=== PATIENT | female | born 1990 | race American Indian/Alaskan Native ===

== ENCOUNTER 2017-07-03 14:08 | Emergency (ER) | payer MEDICAID ==
[2017-07-03 14:14] VITALS: TEMP 98
[2017-07-03] MEDS ORDERED: Sodium Chloride 0.9% 1,000 ML IV STA (14:23)
--- NOTE | 2017-07-03 14:35 | ED PDOC ---
Arrival/HPI <Allan Alvarado - Last Filed: 07/03/17 17:34> - General Historian: Patient - History of Present Illness Time/Duration: Prior to Arrival Symptom Onset: Other Symptom Course: Improving Activities at Onset: Rest Context: Home <Kamran Casas - Last Filed: 07/03/17 21:51> - General Chief Complaint: GI Problem Time Seen by Provider: 07/03/17 14:14 - History of Present Illness Narrative History of Present Illness (Text): 07/03/17 14:30 This is a 26 yo female with past medical hx of morbid obesity presenting to ER with chief complaint of nausea and vomiting. Pt was drinking Patron last night and began vomiting this morning. She reports vomiting about 7 x, non bloody, non bilious. Sebastian some associated lightheadedness. Denies fevers, chills, chest pain, diarrhea, abdominal pain. Vomiting had not let up so she decided to come in. PMH: morbid obesity PSH: none Allergies: NKDA FH: denies Home meds: none Social hx: former smoker. binge drinker on weekends. no drugs. 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 Lives at home with daughter. Born in [place]. 07/03/17 14:53 (Kamran Casas) Past Medical History - Provider Review Nursing Documentation Reviewed: Yes <Allan Alvarado - Last Filed: 07/03/17 17:34> - Provider Review Nursing Documentation Reviewed: Yes - Travel History Have you recently traveled outside [place] w/in the past 3 mons?: No - Past History Past History: No Previous - Tetanus Immunization Tetanus Immunization: Unknown - Reproductive Menopause: No - Past Medical History Past Medical History: No Previous - Psychiatric Hx Psychophysiologic Disorder: No Hx Substance Use: No <Kamran Casas - Last Filed: 07/03/17 21:51> Family/Social History - Physician Review Nursing Documentation Reviewed: Yes <Allan Alvarado - Last Filed: 07/03/17 17:34> - Physician Review Nursing Documentation Reviewed: Yes Family/Social History: No Known Family HX Smoking Status: Former Smoker Hx Alcohol Use: Yes Frequency of alcohol use: Socially Hx Substance Use: No Hx Substance Use Treatment: No <Kamran Casas - Last Filed: 07/03/17 21:51> Allergies/Home Meds <JennyHaleyAllan - Last Filed: 07/03/17 17:34> <Kamran Casas - Last Filed: 07/03/17 21:51> Allergies/Adverse Reactions: Allergies No Known Allergies Allergy (Verified 07/03/17 14:10) Review of Systems - Physician Review All systems were reviewed & negative as marked: Yes <DimaslexiejourdanAllan - Last Filed: 07/03/17 17:34> - Review of Systems Constitutional: absent: Fatigue, Weight Change, Fevers Eyes: absent: Vision Changes, Photophobia ENT: absent: Hearing Changes, Tinnitus Respiratory: absent: SOB, Cough Cardiovascular: absent: Chest Pain, Palpitations Gastrointestinal: Nausea, Vomiting. absent: Abdominal Pain, Constipation, Diarrhea Genitourinary Female: absent: Dysuria, Frequency Musculoskeletal: absent: Arthralgias, Back Pain Skin: absent: Rash, Pruritis Neurological: absent: Headache, Dizziness Endocrine: absent: Diaphoresis, Polyuria Hemo/Lymphatic: absent: Adenopathy, Easy Bleeding Psychiatric: absent: Anxiety, Depression <Kamran Casas - Last Filed: 07/03/17 21:51> Physical Exam Vital Signs Reviewed: Yes Temperature: Afebrile Blood Pressure: Normal Pulse: Regular Respiratory Rate: Normal <DimaslexiejourdanAllan - Last Filed: 07/03/17 17:34> Appearance: Positive for: Well-Appearing Mental Status: Positive for: Alert and Oriented X 3 - Systems Exam Head: Present: Atraumatic, Normocephalic Pupils: Present: PERRL Extroacular Muscles: Present: EOMI Mouth: Present: Moist Mucous Membranes Neck: Present: Normal Range of Motion Respiratory/Chest: Present: Clear to Auscultation. No: Respiratory Distress Cardiovascular: Present: Regular Rate and Rhythm, Normal S1, S2 Abdomen: Present: Normal Bowel Sounds. No: Tenderness, Distention, Peritoneal Signs, Rebound, Guarding Upper Extremity: Present: Normal Inspection. No: Cyanosis, Edema Lower Extremity: Present: Normal Inspection. No: Edema Neurological: Present: CN II-XII Intact, Speech Normal Skin: Present: Warm, Dry Psychiatric: Present: Alert, Oriented x 3, Normal Insight, Normal Concentration <Kamarn Casas - Last Filed: 07/03/17 21:51> Vital Signs Temp Pulse Resp BP Pulse Ox 07/03/17 15:25 76 18 124/76 98 07/03/17 14:10 98.0 F 89 17 128/89 99 - Medication Orders Current Medication Orders: Discontinued Medications Ondansetron HCl (Zofran Odt) 8 mg PO STAT STA Stop: 07/03/17 14:30 Last Admin: 07/03/17 14:42 Dose: 8 mg - PA / SEASONER HAND / Resident Statement / has reviewed & agrees with the documentation as recorded. / has examined the patient and agrees with the treatment plan. <Allan Alvarado - Last Filed: 07/03/17 17:34> Disposition/Present on Arrival <Allan Alvarado - Last Filed: 07/03/17 17:34> - Present on Arrival Any Indicators Present on Arrival: No History of DVT/PE: No History of Uncontrolled Diabetes: No Urinary Catheter: No History of Decub. Ulcer: No History Surgical Site Infection Following: None - Disposition Have Diagnosis and Disposition been Completed?: Yes Disposition Time: 14:00 Patient Plan: Discharge <Kamran Casas - Last Filed: 07/03/17 21:51> - Disposition Diagnosis: Vomiting Disposition: HOME/ ROUTINE Condition: STABLE Discharge Instructions (ExitCare): Acute Nausea and Vomiting (ED) Additional Instructions: Please return if condition worsens. Please follow up with PMD. Please avoid binge drinking. Prescriptions: Ondansetron ODT [Zofran ODT] 8 mg PO Q6 #20 odt Forms: [employer] (Guamanian)
[2017-07-03 15:25] VITALS: BP 124/76; PULSE 76; RESP 18; O2SAT 98
== END 2017-07-03 15:25 | disposition home or self-care (01) ==
LOC: ED 14:08 → MERGE 14:08 → ED 15:25
DX: R11.10 Vomiting, unspecified (principal); E66.01 Morbid (severe) obesity due to excess calories; Z87.891 Personal history of nicotine dependence

== ENCOUNTER 2018-09-22 19:43 | Emergency (ER) | payer MEDICAID, OTHER ==
[2018-09-22 20:04] VITALS: BMI 37.2
[2018-09-22 20:06] VITALS: RESP 18; TEMP 98.7
--- NOTE | 2018-09-22 22:05 | ED PDOC ---
Arrival/HPI - General Chief Complaint: Cough, Cold, Congestion Time Seen by Provider: 09/22/18 20:06 Historian: Patient - History of Present Illness Narrative History of Present Illness (Text): 09/22/18 22:03 27yo female with no pmhx who present with complaint of bodyache, yellow productive cough, nasal congestion, sore throat x 5days.+Subjective fever. Denies nausea, vomiting, abdominal pain, sick contact, travel, any other c omplaint. Past Medical History - Provider Review Nursing Documentation Reviewed: Yes - Past History Past History: No Previous - Infectious Disease Hx of Infectious Diseases: None - Tetanus Immunization Tetanus Immunization: Unknown - Past Medical History Past Medical History: No Previous - Psychiatric Hx Psychophysiologic Disorder: No Hx Substance Use: No - Anesthesia Hx Anesthesia: No - Suicidal Assessment Feels Threatened In Home Enviroment: No Family/Social History - Physician Review Nursing Documentation Reviewed: Yes Family/Social History: Unknown Family HX Smoking Status: Former Smoker Hx Alcohol Use: Yes Frequency of alcohol use: Socially Hx Substance Use: No Hx Substance Use Treatment: No Allergies/Home Meds Allergies/Adverse Reactions: Allergies No Known Allergies Allergy (Verified 09/22/18 20:03) Review of Systems - Physician Review All systems were reviewed & negative as marked: Yes - Review of Systems Constitutional: Fatigue Eyes: Normal ENT: Sore Throat Respiratory: Cough Cardiovascular: Normal Gastrointestinal: Normal Genitourinary Female: Normal Musculoskeletal: Normal Skin: Normal Neurological: Normal Endocrine: Normal Hemo/Lymphatic: Normal Psychiatric: Normal Physical Exam Vital Signs Reviewed: Yes Vital Signs Temp Pulse Resp BP Pulse Ox 09/22/18 20:05 98.7 F 104 H 18 135/84 97 Temperature: Afebrile Blood Pressure: Normal Pulse: Regular Respiratory Rate: Normal Appearance: Positive for: Well-Appearing, Non-Toxic, Comfortable Pain Distress: None Mental Status: Positive for: Alert and Oriented X 3 - Systems Exam Head: Present: Atraumatic, Normocephalic Pupils: Present: PERRL Extroacular Muscles: Present: EOMI Conjunctiva: Present: Normal Mouth: Present: Moist Mucous Membranes Pharnyx: Present: Normal. No: ERYTHEMA, EXUDATE, TONSILS ENLARGED, Peritonsilar Swelling, Uvular Deviation, Muffled/Hoarse Voice, Strider, Soft Palate/Uvular Edema Neck: Present: Normal Range of Motion Respiratory/Chest: Present: Clear to Auscultation, Good Air Exchange. No: Respiratory Distress, Accessory Muscle Use, Wheezes, Decreased Breath Sounds, Rales, Retracting, Rhonchi Cardiovascular: Present: Regular Rate and Rhythm, Normal S1, S2. No: Murmurs Abdomen: No: Tenderness, Distention, Peritoneal Signs Back: Present: Normal Inspection Upper Extremity: Present: Normal Inspection. No: Cyanosis, Edema Lower Extremity: Present: Normal Inspection. No: Edema Neurological: Present: GCS=15, CN II-XII Intact, Speech Normal Skin: Present: Warm, Dry, Normal Color. No: Rashes Psychiatric: Present: Alert, Oriented x 3, Normal Insight, Normal Concentration Medical Decision Making ED Course and Treatment: 09/23/18 01:14 PT in ED for stated history. She was hemodynamically stable. rapid flu was positive for Flu A Chest xray - NAD Result was DW the pt. Started on Tamiflu. Advised to drink plenty of fluid, rest, take Ibuprofen every 6hrs as needed and f/u with her PMD - RAD Interpretation Radiology Orders: 09/22/18 20:07 CHEST TWO VIEWS (PA/LAT) [RAD] Stat - Medication Orders Current Medication Orders: Discontinued Medications Oseltamivir Phosphate (Tamiflu Cap) 75 mg PO ONCE STA; Protocol Stop: 09/22/18 21:35 Last Admin: 09/22/18 21:48 Dose: 75 mg Disposition/Present on Arrival - Present on Arrival Any Indicators Present on Arrival: No History of DVT/PE: No History of Uncontrolled Diabetes: No Urinary Catheter: No History of Decub. Ulcer: No History Surgical Site Infection Following: None - Disposition Have Diagnosis and Disposition been Completed?: Yes Diagnosis: Influenza Disposition: HOME/ ROUTINE Disposition Time: 22:10 Patient Plan: Discharge Condition: STABLE Discharge Instructions (ExitCare): Flu, Adult (DC) Additional Instructions: Follow up with your Doctor Drink plenty of fluid and rest Return to ED for any new or worsening symptoms Prescriptions: Benzonatate [Tessalon Perle] 100 mg PO TID #30 capsule Oseltamivir Phosphate [Tamiflu] 75 mg PO BID #10 capsule Referrals: Demetra Lawrence MD [Medical Doctor] - Follow up with primary Forms: [employer] (Lebanese)
[2018-09-22 22:38] VITALS: BP 124/76; PULSE 89; O2SAT 98
--- NOTE | 2018-09-23 09:29 | RAD ---
Date of service: 09/22/2018 HISTORY: cough COMPARISON: No prior. TECHNIQUE: Chest PA and lateral FINDINGS: LUNGS: No active pulmonary disease. PLEURA: No significant pleural effusion identified. No pneumothorax apparent. CARDIOVASCULAR: No aortic atherosclerotic calcification present. Normal cardiac size. No pulmonary vascular congestion. OSSEOUS STRUCTURES: No significant abnormalities. VISUALIZED UPPER ABDOMEN: Normal. OTHER FINDINGS: None. IMPRESSION: No active disease.
== END 2018-09-22 22:30 | disposition home or self-care (01) ==
LOC: ED 19:43
DX: J11.1 Influenza due to unidentified influenza virus with other respiratory manifestations (principal); Z87.891 Personal history of nicotine dependence